=== PATIENT | female | born 1975 | race Caucasian/White ===

== ENCOUNTER → 2017-01-04 | Outpatient (CLI) | payer BC ==
[~2017-01-04] MED LIST: ARMOUR THYROID30 MG PO; ATIVAN 0.50.5 MG/TAB PO; DUO-KAPS1 CAP PO; FLEXERIL 1010 MG/TAB PO; INDOCIN50 MG PO; NO HOME MEDICATIONS; NORCO 325 MG-51 TAB PO; PEN-VEE K500 MG PO; PERCOCET 325 MG1 TA2 PO; PRENATAL VITAMI1 TA5 PO
== END ==
LOC: MC.RAD 09:00
DX: Z12.31 Encounter for screening mammogram for malignant neoplasm of breast (principal)

== ENCOUNTER 2018-01-01 04:56 | Emergency (ER) | payer BC ==
[~2018-01-01] VITALS: Ht 167.6 cm; Wt 93.2 kg
[2018-01-01 05:29] VITALS: TEMP 98.6
[2018-01-01 06:17] LABS: COLLECTION METHOD CLEAN CATCH
[2018-01-01 06:22] LABS: MUCOUS Present /lpf; PH 5 (5-8); SQUAMOUS EPITHELIAL 0-2 /hpf; URINE APPEARANCE Clear; URINE BACTERIA None Seen /hpf; URINE BILIRUBIN Negative (NEGATIVE); URINE BLOOD Negative (NEGATIVE); URINE COLOR Yellow; URINE GLUCOSE Negative (NEGATIVE); URINE KETONE Negative (NEGATIVE); URINE LEUKOCYTE ESTERASE Negative (NEGATIVE); URINE NITRATE Negative (NEGATIVE); URINE PROTEIN(semi-quant) Negative (NEGATIVE); URINE RBC 0-2 /hpf; URINE UROBILINOGEN Negative (NEGATIVE)
[2018-01-01 06:33] LABS: BASO # 0.1 (0.0-0.2); BASO % 0.6 % (0.0-2.0); EOS # 0.6 (0.0-0.7); EOS % 5.3 % (0-4.0); GRAN # 6.6 (1.4-6.5); GRAN % 63.8 % (42.2-75.2); HEMATOCRIT 43.3 % (37.0-47.0); HEMOGLOBIN 14.7 g/dl (12.5-16.0); LYMPH # 2.6 (1.2-3.4); LYMPH % 24.9 % (20.0-51.0); MEAN CELL VOLUME 87 fl (80.0-100.0); MEAN CORPUSCULAR HEMOGLOBIN 30 pg (27.0-31.0); MEAN CORPUSCULAR HGB CONC 34 g/dl (33.0-37.0); MEAN PLATELET VOLUME 8.3 fl (7.4-10.4); MONO # 0.5 (0.1-0.6); MONO % 5.2 % (1.7-9.3); PLATELET COUNT 347 K/mm3 (130-400); RED BLOOD COUNT 4.99 M/mm3 (4.10-5.30); REDCELL DISTRIBUTION WIDTH-CV 12.1 % (11.5-14.5)
[2018-01-01] MEDS ORDERED: CYMBALTA 60MG60 MG PO (06:37)
[2018-01-01] MEDS ORDERED: LEVOXYL0.075 MG PO (06:37)
[2018-01-01] MEDS ORDERED: MULTIPLE VITAMI1 CAP PO (06:38)
[2018-01-01] MEDS ORDERED: VITAMIN D32000 I1 PO (06:39)
[2018-01-01 06:46] LABS: ALANINE AMINOTRANSFERASE 31 U/L (9-52); ALBUMIN 3.9 gm/dL (3.5-5.0); ALKALINE PHOSPHATASE 88 U/L (50-136); ANION GAP 11 mmol/L (7-16); AST,SGOT 19 U/L (15-37); BILIRUBIN,TOTAL 0.2 mg/dL (0.0-1.0); BLOOD UREA NITROGEN 11 mg/dL (7-17); CARBON DIOXIDE 26 mmol/L (22-30); CHLORIDE 103 mmol/L (98-107); GLUCOSE 107 mg/dL (74-106); LIPASE 26 U/L (23-300); POTASSIUM 4.1 mmol/L (3.4-5.0); SODIUM 140 mmol/L (137-145); TOTAL PROTEIN 7.4 gm/dL (6.4-8.2)
[2018-01-01 06:47] LABS: C-REACTIVE PROTEIN < 0.5 mg/dL (0.0-0.9)
[2018-01-01] MEDS ORDERED: NORCO 325 MG-51 TAB PO (08:25)
[2018-01-01 08:57] VITALS: BP 130/86; PULSE 68
== END 2018-01-01 08:57 | disposition home or self-care (01) ==
LOC: COL.ER 04:56
PROVIDERS: Family Medicine
DX: R10.11 Right upper quadrant pain (principal)
CPT/HCPCS: J2405; J3010; J7030

== ENCOUNTER → 2018-08-29 | Outpatient (CLI) | payer BC ==
[~2018-08-29] MED LIST changes: +CYMBALTA 60MG60 MG PO; +LEVOXYL0.075 MG PO; +MULTIPLE VITAMI1 CAP PO; +VITAMIN D32000 I1 PO
== END ==
LOC: COL.RAD 08:15
DX: G44.89 Other headache syndrome (principal)

== ENCOUNTER → 2021-06-18 | Outpatient (CLI) | payer BC | LOC: MC.RAD 08:23 | DX: N60.01 Solitary cyst of right breast (principal) ==